=== PATIENT | female | born 1940 | race Caucasian/White ===

== ENCOUNTER → 2018-05-15 | Outpatient (CLI) | payer MEDICARE ==
[~2018-05-15] MED LIST: GADOBUTROL 7.5 MMOL/7.5 ML VIAL IV
== END | disposition home or self-care (01) ==
LOC: KCIC MRI 11:33
DX: M50.321 Other cervical disc degeneration at C4-C5 level (principal); R90.82 White matter disease, unspecified
CPT/HCPCS: 70553; 82565

== ENCOUNTER → 2019-12-07 | Outpatient (CLI) | payer MEDICARE ==
[~2019-12-07] MED LIST changes: +ALPR0.254 PO; +ASPI-630 PO; +ASPI81TA50 PO; +ATOR10TA PO; +CETI10TA24 PO; +CHOL10003 PO; +CYAN-25 PO; -GADOBUTROL 7.5 MMOL/7.5 ML VIAL IV; +LOSA100T14 PO; +LOSA25TA54 PO; +MELA3TAB56 PO; +MONT10TA49 PO; +PANT20TA2 PO; +PANT40TA77 PO; +POTASSIUM 99 MG PO; +RANI150C PO; +TIZA4TAB2 PO; +VERA240C2 PO; +ZOLP5TAB5 PO
--- NOTE | 2019-12-07 15:06 | KCIC ---
EXAM: Bilateral lower extremity venous Doppler sonogram. HISTORY: Pain and swelling. TECHNIQUE: Montiel scale and color Doppler sonographic evaluation of the bilateral lower extremity veins with spectral waveform analysis was performed. FINDINGS: There is normal color flow, normal compressibility and there are normal spectral waveforms in the common femoral, superficial femoral, popliteal, posterior tibial and greater saphenous veins. IMPRESSION: No Doppler evidence of lower extremity deep venous thrombosis. Electronically signed by: Bebe Nguyen MD (12/07/2019 3:04 PM) [email or web address]
== END ==
LOC: KCIC US 13:54
PROVIDERS: ATTEND Internal Medicine
DX: R60.0 Localized edema (principal)
CPT/HCPCS: 93970